=== PATIENT | female | born 1960 | race Two or more races ===

== ENCOUNTER 2024-03-14 17:48 | Emergency (ER) | payer MEDICAID, OTHER ==
[~2024-03-14] VITALS: Ht 167.6 cm; Wt 89.9 kg
[2024-03-14 18:43] VITALS: BP 120/73; PULSE 69; RESP 18; O2SAT 99
[2024-03-14] MEDS: CLINDAMYCIN HCL 150 MG CAP PO ONE (18:56)
[2024-03-14] MEDS: cefTRIAXone SOD 1,000 MG VL IM ONE (18:57)
--- NOTE | 2024-03-14 19:02 | ED.PDOC ---
History of Present Illness HPI Comments 63 y/o F, with a Hx of DM, HTN, and obesity, presents with c/o burn wound to right breast, today. 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 Patient comments on previous burn wound healing properly until today and burn area being localized around her right nipple area. Patient denies having any numbness, tingling, or active bleeding to right breast area in addition to having any other associated symptoms or modifiers at this time. 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 Family History Family History: Unknown Social History Smoker: Non-Smoker Alcohol: Denies ETOH Use Drugs: Denies Drug Use Lives In: Home Constitutional: denies: chills, diaphoresis, fatigue, fever, malaise, sweats, weakness, others EENTM: denies: blurred vision, double vision, ear bleeding, ear discharge, ear drainage, ear pain, ear ringing, eye pain, eye redness, hearing loss, mouth pain, mouth swelling, nasal discharge, nose bleeding, nose congestion, nose pain, photophobia, tearing, throat pain, throat swelling, voice changes, others Respiratory: denies: cough, hemoptysis, orthopnea, SOB at rest, shortness of breath, SOB with excertion, stridor, wheezing, others Cardiovascular: denies: chest pain, dizzy spells, diaphoresis, Dyspnea on exertion, edema, irregular heart beat, left arm pain, lightheadedness, palp itations, PND, syncope, others Gastrointestinal: denies: abdomen distended, abdominal pain, blood streaked bowels, constipated, diarrhea, dysphagia, difficulty swallowing, hematemesis, melena, nausea, poor appetite, poor fluid intake, rectal bleeding, rectal pain, vomiting, others Genitourinary: denies: abnormal vagina bleeding, burning, dyspareunia, dysuria, flank pain, frequency, hematuria, incontinence, pain, , vagina discharge, urgency, others Neurological: denies: dizziness, fainting, headache, left sided numbness, left sided weakness, numbness, paresthesia, pre-existing deficit, right sided numbness, right sided weakness, seizure, speech problems, tingling, tremors, weakness, others Musculoskeletal: denies: back pain, gout, joint pain, joint swelling, muscle pain, muscle stiffness, neck pain, others Integumetry: reports: wounds (right breast ); denies: bruises, change in color, change in hair/nails, dryness, laceration, lesions, lumps, rash, others Allergic/Immunocompromised: denies: Difficulty Healing, Frequent Infections, Hives, Itching, others Hematologic/Lymphatic: denies: anemia, blood clots, easy bleeding, easy bruising, swollen glands, others Endocrine: denies: excessive hunger, excessive sweating, excessive thirst, excessive urination, flushing, intolerance to cold, intolerance to heat, unexplained weight gain, unexplained weight loss, others Psychiatric: denies: anxiety, bipolar disorder, depression, hopeless, panic disorder, schizophrenia, sleepless, suicidal, others All Other Systems: Reviewed and Negative Physical Exam General Appearance: Moderate Distress HEENT: Normal ENT Inspection, Pharynx Normal, TMs Normal Neck: Full Range of Motion, Non-Tender, Normal, Normal Inspection Respiratory: Chest Non-Tender, Lungs Clear, No Accessory Muscle Use, No Respiratory Distress, Normal Breath Sounds Cardiovascular: No Edema, No JVD, No Murmur, No Gallop, Normal Peripheral Pulses, Regular Rate/Rhythm Breast Exam: Deferred Gastrointestinal: No Organomegaly, Non Tender, No Pulsatile Mass, Normal Bowel Sounds, Soft Genitalia: Deferred Pelvic: Deferred Rectal: Deferred Extremities: No calf tenderness, Normal capillary refill, Normal inspection, Normal range of motion, Non-tender, No pedal edema Musculoskeletal : Apperance: Normal Neurologic: 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 Was a procedure done?: No Differential Dx Considerations may include: burn wounds, cellulitis, dermatitis X-Ray, Labs, Meds, VS Vital Signs Date Time Temp Pulse Resp B/P (MAP) Pulse Ox O2 Delivery O2 Flow Rate FiO2 03/14/24 18:43 69 18 99 Room Air* 0 21 03/14/24 18:43 69 18 120/73 (89) 99 03/14/24 18:03 98.1 65 16 129/74 (92) 96 Current Medications Medications (Trade) Dose Ordered Sig/Queenie Route Start Time Stop Time Status Last Admin Ceftriaxone Sodium (Rocephin) 1,000 mg ONCE ONCE IM 03/14/24 19:00 03/14/24 19:01 DC 03/14/24 18:57 Clindamycin HCl (Cleocin Capsule) 300 mg ONCE ONCE PO 03/14/24 19:00 03/14/24 19:01 DC 03/14/24 18:56 Patient alert. Has a wound on her right breast. After placing a hot pot or right breast. Contained redness. Vitals stable. Answering all questions. Was given Rocephin. Was given prescription of amoxicillin clindamycin antibiotic. Explained to the patient. Physical examination pristine other than the wound. Denies chest pain. No leg swelling. Denies shortness a breath pain Reviewed her history. Was told to follow up with her primary care physician. Was told to come back if there is any problem. Time of 1ST Reevaluation: 19:10 Reevaluation 1ST: Unchanged Patient Education/Counseling: Diagnosis, Treatment Family Education/Counseling: No Family Present Departure 1 Departure Time of Disposition: 19:09 Impression: Primary Impression: Cellulitis Qualified Codes: L03.90 - Cellulitis, unspecified Disposition: 01 HOME / SELF CARE / HOMELESS Condition: Good e-Prescriptions Clindamycin Hcl (Clindamycin Hcl) 300 Mg Cap 1 CAP PO TID, #30 CAP Prov: ELIZABETH GRIGSBY MD 03/14/24 Amoxicillin Trihydrate (Amoxicillin) 500 Mg Cap 1 CAP PO TID for 10 Days, #30 CAP Prov: ELIZABETH GRIGSBY MD 03/14/24 Discharged With: Self Critical Care Note Critical Care Time?: No Stability Stability form required: No Heart Score Heart Score: Heart Score Response (Comments) Value History N/A 0 EKG N/A 0 Age N/A 0 Risk Factors N/A 0 Troponin N/A 0 Total 0 I personally scribed for ELIZABETH GRIGSBY MD ([email or web address]) on 03/14/24 at 19:02. Electronically submitted by Venancio Benavides ([email or web address]). ELIZABETH GRIGSBY MD Mar 14, 2024 19:02
[2024-03-14] MEDS ORDERED: AMOX500C2 PO (19:10)
[2024-03-14] MEDS ORDERED: CLIN1CAP70 PO (19:10)
== END 2024-03-14 19:35 | disposition home or self-care (01) ==
LOC: ER 17:48
DX: N61.0 Mastitis without abscess (principal); E11.9 Type 2 diabetes mellitus without complications; I10 Essential (primary) hypertension
CPT/HCPCS: 96372; 99283; J0696

== ENCOUNTER → 2024-09-15 | Day surgery (SDC) | payer MEDICAID ==
[2024-09-13 10:51] LABS: Basophils # (auto) 0 10 ^3/uL (0-0.2); Basophils % (auto) 0.6 % (0.0-2.0); Eosinophils # (auto) 0.2 10 ^3/uL (0-0.8); Hemoglobin 13.6 g/dL (12.2-16.2); Lymphocytes # (auto) 1.8 10 ^3/uL (0.4-5.4); Lymphocytes % (auto) 31.4 % (10.0-50.0); Mean Corpuscular Hemoglobin 27.5 pg (28.0-32.0); Mean Corpuscular Hgb Conc. 33.2 g/dL (32.0-36.0); Monocytes # (auto) 0.6 10 ^3/uL (0-1.3); Monocytes % (auto) 10.6 % (0.0-12.0); Neutrophils % (auto) 53.4 % (37.0-80.0); Nucleated Red Blood Cells % 0.2 %; Platelet Count (auto) 265 10^3/uL (140-450); Red Blood Cells 4.94 10^6/uL (4.0-5.20); Red Cell Distribution Width 14.3 % (11.8-14.3); White Blood Cell 5.7 10^3/uL (4.4-10.8)
[2024-09-13 11:01] LABS: Urine Bacteria FEW /hpf (None Seen); Urine Blood Negative /uL (Negative); Urine Clarity Clear (Clear); Urine Color Yellow (Yellow); Urine Protein, UAD Negative (Negative); Urine Specific Gravity 1.024 (1.001-1.035); Urine Squamous Epithelial Cell FEW /hpf (<5); Urine Urobilinogen Normal (Negative); Urine WBC 2 /HPF (0-5); Urine pH 5.5 (5.0-9.0)
[2024-09-13 11:16] LABS: Alanine Aminotransferase 24 U/L (7-40); Albumin 4.4 g/dL (3.2-4.8); Alkaline Phosphatase 87 U/L (46-116); Anion Gap 7 (5-15); Aspartate Aminotransferase 18 U/L (13-40); BUN/Creatinine Ratio 21.2 (10.0-20.0); Bilirubin, Total 0.5 mg/dL (0.2-1.0); Blood Urea Nitrogen 14 mg/dL (9-23); Calcium 10.1 mg/dL (8.7-10.4); Carbon Dioxide 27 mmol/L (20-31); Chloride 103 mmol/L (98-107); Potassium 4.1 mmol/L (3.5-5.1); Sodium 137 mmol/L (136-145)
[2024-09-13 11:17] LABS: Glucose 243 mg/dL (74-106)
[2024-09-13 11:31] LABS: INR 0.97 (0.9-1.15); Partial Thromboplastin Time 26.2 SEC (24.5-34.5); Prothrombin Time 10.3 sec (9.3-11.8)
[~2024-09-15] VITALS: Ht 170.2 cm; Wt 90.7 kg
[~2024-09-15] MED LIST: AMOX500C2 PO; BUPIVACAINE 0.5% P/F INJ 10 ML VIAL ONE; CLIN1CAP70 PO; CYCL-837 PO; HYDROmorphone HCL 2 MG/ML VL/or syr IV PRN; IBUP-1456 PO; KETOROLAC TROMETH 30 MG/ML 1ML VIAL IV ONE; LIDOCAINE W/ EPINEPHRINE 1% 20ML VIAL ONE; ONDANSETRON HCL 4 MG/2 ML VIAL IV ONE; ceFAZolin 2 GM/D5W50ml 50 ML IV ONE; hydrALAZINE HCL 20 MG/ML VL IV PRN
[2024-09-15 07:46] VITALS: BP 157/85; PULSE 95; RESP 18; TEMP 98; O2SAT 95
== END | disposition home or self-care (01) ==
LOC: SUR 07:19
PROVIDERS: ATTEND Surgery
DX: K40.90 Unilateral inguinal hernia, without obstruction or gangrene, not specified as recurrent (principal); E11.9 Type 2 diabetes mellitus without complications; Z79.84 Long term (current) use of oral hypoglycemic drugs; Z98.890 Other specified postprocedural states; Z79.899 Other long term (current) drug therapy
CPT/HCPCS: 36415; 80053; 81001; 82962; 85025; 85610; 85730; J0690; J3490

== ENCOUNTER 2024-09-22 16:42 | Emergency (ER) | payer MEDICAID ==
[~2024-09-22] VITALS: Ht 170.2 cm; Wt 92.6 kg
[~2024-09-22 16:42] MED LIST changes: -BUPIVACAINE 0.5% P/F INJ 10 ML VIAL ONE; -CYCL-837 PO; -HYDROmorphone HCL 2 MG/ML VL/or syr IV PRN; -IBUP-1456 PO; -KETOROLAC TROMETH 30 MG/ML 1ML VIAL IV ONE; -LIDOCAINE W/ EPINEPHRINE 1% 20ML VIAL ONE; -ONDANSETRON HCL 4 MG/2 ML VIAL IV ONE; -ceFAZolin 2 GM/D5W50ml 50 ML IV ONE; -hydrALAZINE HCL 20 MG/ML VL IV PRN
[2024-09-22 18:22] VITALS: BP 131/85; PULSE 106; RESP 16; TEMP 96.9; O2SAT 94
[2024-09-22] MEDS ORDERED: IBUP-1456 PO (18:47)
[2024-09-22] MEDS ORDERED: CYCL-837 PO (18:47)
--- NOTE | 2024-09-22 18:47 | ED.PDOC ---
Musculoskeletal HPI Comments 63-year-old female presents to ER with complaints of back pain x2 weeks. Patient reports she started experiencing left lower back pain with radiation towards the left buttock and down posterior left leg two weeks ago. Denies any trauma/injury. She rates her current pain a 10/10. Denies use of medications for current symptoms. Patient presents to ER ambulatory on arrival, with steady gait, in no distress. Denies fever, body aches, chills, night sweats, shortness of breath, chest pain, abdominal/pelvic pain, fatigue, changes in urination/BM or any further symptoms/complaints Chief Complaint: Lower Extremity Time Seen by MD: 18:07 Primary Care Provider: NILESH Reviewed Notes: Nurses Notes, Medications, Allergies Allergies: Coded Allergies: NO KNOWN ALLERGIES (Unverified , 09/13/24) Home Meds Active Scripts Cyclobenzaprine Hcl (Cyclobenzaprine Hcl) 5 Mg Tab, 1 TAB PO QHSP PRN, #14 TAB 0 Refills Prov:FERNANDO SANDOVAL 09/22/24 Ibuprofen (Ibuprofen) 800 Mg Tab, 1 TAB PO TID PRN, #30 TAB 0 Refills Prov:FERNANDO SANDOVAL 09/22/24 Clindamycin Hcl (Clindamycin Hcl) 300 Mg Cap, 1 CAP PO TID, #30 CAP Prov:ELIZABETH GRIGSBY MD 03/14/24 Amoxicillin Trihydrate (Amoxicillin) 500 Mg Cap, 1 CAP PO TID for 10 Days, #30 CAP Prov:ELIZABETH GRIGSBY MD 03/14/24 Information Source: Patient Mode of Arrival: Ambulatory Past Medical History PAST MEDICAL HISTORY: DM, High Lipids, HTN Surgical History: Surgical History (Other): Right knee surgery Left breast surgery 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 Family History Family History: Unknown Social History Smoker: Non-Smoker Alcohol: Denies ETOH Use Drugs: Denies Drug Use Lives In: Home Constitutional: denies: chills, diaphoresis, fatigue, fever, malaise, sweats, weakness, others EENTM: denies: blurred vision, double vision, ear bleeding, ear discharge, ear drainage, ear pain, ear ringing, eye pain, eye redness, hearing loss, mouth pain, mouth swelling, nasal discharge, nose bleeding, nose congestion, nose pain, photophobia, tearing, throat pain, throat swelling, voice changes, others Respiratory: denies: cough, hemoptysis, orthopnea, SOB at rest, shortness of breath, SOB with excertion, stridor, wheezing, others Cardiovascular: denies: chest pain, dizzy spells, diaphoresis, Dyspnea on exertion, edema, irregular heart beat, left arm pain, lightheadedness, palpitations, PND, syncope, others Gastrointestinal: denies: abdomen distended, abdominal pain, blood streaked bowels, constipated, diarrhea, dysphagia, difficulty swallowing, hematemesis, melena, nausea, poor appetite, poor fluid intake, rectal bleeding, rectal pain, vomiting, others Genitourinary: denies: abnormal vagina bleeding, burning, dyspareunia, dysuria, flank pain, frequency, hematuria, incontinence, pain, , vagina discharge, urgency, others Neurological: denies: dizziness, fainting, headache, left sided numbness, left sided weakness, numbness, paresthesia, pre-existing deficit, right sided numbness, right sided weakness, seizure, speech problems, tingling, tremors, weakness, others Musculoskeletal: reports: others (As stated in HPI) Integumetry: denies: bruises, change in color, change in hair/nails, dryness, laceration, lesions, lumps, rash, wounds, others Allergic/Immunocompromised: denies: Difficulty Healing, Frequent Infections, Hives, Itching, others Hematologic/Lymphatic: denies: anemia, blood clots, easy bleeding, easy bruising, swollen glands, others Endocrine: denies: excessive hunger, excessive sweating, excessive thirst, excessive urination, flushing, intolerance to cold, intolerance to heat, unexplained weight gain, unexplained weight loss, others Psychiatric: denies: anxiety, bipolar disorder, depression, hopeless, panic disorder, schizophrenia, sleepless, suicidal, others Physical Exam General Appearance: No Apparent Distress HEENT: PERRL/EOMI Neck: Full Range of Motion, Non-Tender, Normal Respiratory: Chest Non-Tender, Lungs Clear, No Accessory Muscle Use, No Respiratory Distress, Normal Breath Sounds Cardiovascular: No Murmur, No Gallop, Regular Rate/Rhythm Breast Exam: Deferred Gastrointestinal: Non Tender, No Pulsatile Mass, Soft Genitalia: Deferred Pelvic: Deferred Rectal: Deferred Extremities: No calf tenderness, Normal capillary refill, Normal range of motion Musculoskeletal : Extremity Location: Back (Slight TTP to left lower lumbar paraspinals and slight TTP centralized to left buttock noted. No bony tenderness appreciated. No skin changes noted. Steady gait noted) Neurologic: Alert, No Motor Deficits, Normal Affect, Normal Mood, No Sensory Deficits Cerebellar Function: Normal Reflexes: Normal Skin: Dry, Normal Color, Warm Peripheral Pulses: 2+ femoral (R), 2+ femoral (L), 2+ dorsalis pedis (R), 2+ dorsalis pedis (L) Lymphatic: No Adenopathy Was a procedure done? Was a procedure done?: No Sedation Sedation?: No Differential Diagnosis EXT Differential Diagnosis: Fracture, Dislocation, Neurovascular injury X-Ray, Labs, Meds, VS Vital Signs Date Time Temp Pulse Resp B/P (MAP) Pulse Ox O2 Delivery O2 Flow Rate FiO2 09/22/24 18:22 96.9 106 16 131/85 (100) 94 96.9 09/22/24 18:22 106 16 94 Room Air 09/22/24 17:31 96.9 106 16 131/85 (100) 94 96.9 Toradol 60 mg IM ordered Patient neurovascularly intact and reported improvement in symptoms prior to discharge Advised on rest/no strenuous activity Advised to follow up with PCP in 1-2 days Patient verbalized understanding and agreeable with current plan of care Advised to return to ER immediately if symptoms worsen Time of 1ST Reevaluation: 18:20 Reevaluation 1ST: N/A Patient Education/Counseling: Diagnosis, Treatment, Prognosis, Need For Follow Up Family Education/Counseling: No Family Present Departure 1 Departure Time of Disposition: 18:42 Impression: Primary Impression: Sciatica, left side Disposition: 01 HOME / SELF CARE / HOMELESS Condition: Stable e-Prescriptions Cyclobenzaprine Hcl (Cyclobenzaprine Hcl) 5 Mg Tab 1 TAB PO QHSP PRN, #14 TAB 0 Refills Prov: FERNANDO SANDOVAL 09/22/24 Ibuprofen (Ibuprofen) 800 Mg Tab 1 TAB PO TID PRN, #30 TAB 0 Refills Prov: FERNANDO SANDOVAL 09/22/24 Discharged With: Self Critical Care Note Critical Care Time?: No Stability Stability form required: No Heart Score Heart Score: Heart Score Response (Comments) Value History N/A 0 EKG N/A 0 Age N/A 0 Risk Factors N/A 0 Troponin N/A 0 Total 0 FERNANDO SANDOVAL September 22, 2024 18:47
[2024-09-22] MEDS: KETOROLAC TROMETH 60MG/2ML VIAL IM ONE (18:57)
== END 2024-09-22 19:01 | disposition home or self-care (01) ==
LOC: ER 16:42
DX: M54.32 Sciatica, left side (principal); E11.9 Type 2 diabetes mellitus without complications; I10 Essential (primary) hypertension; E78.5 Hyperlipidemia, unspecified; Z98.890 Other specified postprocedural states
CPT/HCPCS: 96372; 99283; J1885

== ENCOUNTER 2024-11-11 01:24 | Inpatient (IN) | payer MEDICAID ==
[~2024-11-11] VITALS: Ht 167.6 cm; Wt 72.0 kg
[~2024-11-11 01:24] MED LIST changes: +CYCL-837 PO; +IBUP-1456 PO
[2024-11-11 02:20] LABS: Hematocrit 39.1 % (36.0-46.0); Hemoglobin 13.1 g/dL (12.2-16.2); Mean Corpuscular Hemoglobin 27.5 pg (28.0-32.0); Mean Corpuscular Volume 82.2 fL (80.0-100.0); Nucleated Red Blood Cells % 0.1 %
[2024-11-11 02:29] LABS: Chloride 101 mmol/L (98-107); Potassium 4.0 mmol/L (3.5-5.1); Sodium 139 mmol/L (136-145)
[2024-11-11 02:30] LABS: Anion Gap 9 (5-15); Calcium 9.8 mg/dL (8.7-10.4); Carbon Dioxide 29 mmol/L (20-31)
[2024-11-11 02:35] LABS: BUN/Creatinine Ratio 20.6 (10.0-20.0); Blood Urea Nitrogen 14 mg/dL (9-23)
[2024-11-11 02:36] LABS: Urine Protein, UAD Negative (Negative)
--- NOTE | 2024-11-11 02:38 | DVH ---
CHEST RADIOGRAPH Indication: weakness Technique: Single frontal view of the chest was obtained Comparison: None IMPRESSION: Heart appears normal in size. The lungs appear clear without focal airspace opacity, effusion, or pn eumothorax
[2024-11-11 02:40] LABS: Glucose 152 mg/dL (74-106)
--- NOTE | 2024-11-11 02:44 | DVH ---
EXAM: CT HEAD WITHOUT CONTRAST INDICATION: weakness TECHNIQUE: CT of the head without intravenous contrast. Radiation Dose Information: CT Dose: CTDI volume is 57.5 mGy. Dose-length product is 1132.7 mGy*cm The dose indicators for CT are the volume Computed Tomography (CT) Dose Index (CTDIvol) and the Dose Length Product (DLP), and are measured in units of mGy and mGy-cm, respectively. These indicators are not patient dose, but values generated from the CT scanner acquisition factors. The report includes radiation exposure data for exposures received during this examination. COMPARISON: None FINDINGS: There is no evidence of acute intracranial hemorrhage, extra-axial collection, mass effect, midline s hift, herniation or hydrocephalus. The ventricles, sulci and cisterns are age appropriate. The bo-white differentiation is intact. Mild mucosal sinus thickening left maxillary sinus. The surrounding soft tissues and osseous structures are unremarkable. IMPRESSION: 1. No acute intracranial abnormality.
--- NOTE | 2024-11-11 02:46 | ED.PDOC ---
History of Present Illness HPI Comments 63 year old female presents to the ED via EMS with a chief complaint of dizziness onset 1 day. Patient states she has been experiencing hypertension as well as dizziness, headache, ear ringing for the past day, has not taken any medication. Denies chest pain, nausea, vomiting, diarrhea, fever, chills. No oth er symptoms or modifying factors present at this time. Chief Complaint: Dizziness Time Seen by MD: 02:40 Primary Care Provider: NILESH David Notes: Medications, Allergies Allergies: Coded Allergies: NO KNOWN ALLERGIES (Unverified , 09/13/24) Home Meds Active Scripts Glipizide (Glipizide) 5 Mg Tab, 1 TAB PO BID, #60 TAB 3 Refills Prov:MARIANNE JACINTO MD 11/13/24 Hctz (Hydrochlorothiazide) 25 Mg Tab, 25 MG PO DAILY, #60 TAB Prov:MARIANNE JACINTO MD 11/13/24 Cyclobenzaprine Hcl (Cyclobenzaprine Hcl) 5 Mg Tab, 1 TAB PO QHSP PRN, #14 TAB 0 Refills Prov:FERNANDO SANDOVAL 09/22/24 Reported Medications Metformin Hydrochloride (Metformin Hcl) 500 Mg Tab, 1000 MG PO DAILY for 30 Days, MG 11/11/24 Atorvastatin Calcium (ATORVASTATIN CALCIUM) 20 Mg Tab, 1 TAB PO DAILY 11/11/24 Discontinued Reported Medications Hydrochlorothiazide (Hydrochlorothiazide) 12.5 Mg Cap, 1 CAP PO DAILY 11/11/24 Discontinued Scripts Ibuprofen (Ibuprofen) 800 Mg Tab, 1 TAB PO TID PRN, #30 TAB 0 Refills Prov:FERNANDO SANDOVAL 09/22/24 Clindamycin Hcl (Clindamycin Hcl) 300 Mg Cap, 1 CAP PO TID, #30 CAP Prov:ELIZABETH GRIGSBY MD 03/14/24 Amoxicillin Trihydrate (Amoxicillin) 500 Mg Cap, 1 CAP PO TID for 10 Days, #30 CAP Prov:ELIZABETH GRIGSBY MD 03/14/24 Information Source: Patient, Emergency Med Personnel Mode of Arrival: EMS Severity: Moderate Timing: Hours Duration: Since onset Prehospital treatment: None Past Medical History PAST MEDICAL HISTORY: DM, High Lipids, HTN 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 Family History Family History: Unknown Social History Smoker: Non-Smoker Alcohol: Denies ETOH Use Drugs: Denies Drug Use Lives In: Home Constitutional: denies: chills, diaphoresis, fatigue, fever, malaise, sweats, weakness, others EENTM: reports: ear ringing; denies: blurred vision, double vision, ear bleeding, ear discharge, ear drainage, ear pain, eye pain, eye redness, hearing loss, mouth pain, mouth swelling, nasal discharge, nose bleeding, nose congestion, nose pain, photophobia, tearing, throat pain, throat swelling, voice changes, others Respiratory: denies: cough, hemoptysis, orthopnea, SOB at rest, shortness of breath, SOB with excertion, stridor, wheezing, others Cardiovascular: reports: others (hypertension); denies: chest pain, dizzy spells, diaphoresis, Dyspnea on exertion, edema, irregular heart beat, left arm pain, lightheadedness, palpitations, PND, syncope Gastrointestinal: denies: abdomen distended, abdominal pain, blood streaked bowels, constipated, diarrhea, dysphagia, difficulty swallowing, hematemesis, melena, nausea, poor appetite, poor fluid intake, rectal bleeding, rectal pain, vomiting, others Genitourinary: denies: abnormal vagina bleeding, burning, dyspareunia, dysuria, flank pain, frequency, hematuria, incontinence, pain, , vagina discharge, urgency, others Neurological: reports: dizziness, headache; denies: fainting, left sided numbness, left sided weakness, numbness, paresthesia, pre-existing deficit, right sided numbness, right sided weakness, seizure, speech problems, tingling, tremors, weakness, others Musculoskeletal: denies: back pain, gout, joint pain, joint swelling, muscle pain, muscle stiffness, neck pain, others Integumetry: denies: bruises, change in color, change in hair/nails, dryness, laceration, lesions, lumps, rash, wounds, others Allergic/Immunocompromised: denies: Difficulty Healing, Frequent Infections, Hives, Itching, others Hematologic/Lymphatic: denies: anemia, blood clots, easy bleeding, easy bruising, swollen glands, others Endocrine: denies: excessive hunger, excessive sweating, excessive thirst, excessive urination, flushing, intolerance to cold, intolerance to heat, unexplained weight gain, unexplained weight loss, others Psychiatric: denies: anxiety, bipolar disorder, depression, hopeless, panic disorder, schizophrenia, sleepless, suicidal, others All Other Systems: Reviewed and Negative Physical Exam General Appearance: No Apparent Distress, Normal HEENT: Normal ENT Inspection, Pharynx Normal, TMs Normal Neck: Full Range of Motion, Non-Tender, Normal, Normal Inspection Respiratory: Chest Non-Tender, Lungs Clear, No Accessory Muscle Use, No Respiratory Distress, Normal Breath Sounds Cardiovascular: No Edema, No JVD, No Murmur, No Gallop, Normal Peripheral Pulses, Regular Rate/Rhythm Breast Exam: Deferred Gastrointestinal: No Organomegaly, Non Tender, No Pulsatile Mass, Normal Bowel Sounds, Soft Genitalia: Deferred Pelvic: Deferred Rectal: Deferred Extremities: No calf tenderness, Normal capillary refill, Normal inspection, Normal range of motion, Non-tender, No pedal edema Musculoskeletal : Apperance: Normal 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 Was a procedure done?: No Differential Dx Considerations may include: Hypertensive emergency, migraine, viral syndrome ,electrolyte abnormality X-Ray, Labs, Meds, VS Vital Signs Date Time Temp Pulse Resp B/P (MAP) Pulse Ox O2 Delivery O2 Flow Rate FiO2 11/11/24 08:00 70 11/11/24 07:35 98.6 71 20 132/78 (96) 96 98.6 11/11/24 07:35 71 20 96 Room Air* 0 21 11/11/24 06:00 97.5 66 18 144/77 (99) 96 97.5 11/11/24 04:20 75 19 96 Room Air* 0 21 11/11/24 04:20 75 19 96 Room Air* 0 21 11/11/24 04:20 97.7 75 19 154/89 (110) 96 97.7 11/11/24 01:40 98.7 79 22 160/91 (114) 97 98.7 Lab Test 11/11/24 02:53 11/11/24 02:00 11/11/24 01:25 Range/Units Troponin I High Sensitivity 7 6 </=34 ng/L White Blood Count 7.0 4.4-10.8 10^3/uL Red Blood Count 4.76 4.0-5.20 10^6/uL Hemoglobin 13.1 12.2-16.2 g/dL Hematocrit 39.1 36.0-46.0 % Mean Corpuscular Volume 82.2 80.0-100.0 fL Mean Corpuscular Hemoglobin 27.5 L 28.0-32.0 pg Mean Corpuscular Hemoglobin Concent 33.5 32.0-36.0 g/dL Red Cell Distribution Width 14.2 11.8-14.3 % Platelet Count 267 140-450 10^3/uL Mean Platelet Volume 7.4 6.9-10.8 fL Neutrophils (%) (Auto) 58.3 37.0-80.0 % Lymphocytes (%) (Auto) 29.4 10.0-50.0 % Monocytes (%) (Auto) 8.4 0.0-12.0 % Eosinophils (%) (Auto) 3.3 0.0-7.0 % Basophils (%) (Auto) 0.6 0.0-2.0 % Neutrophils # (Auto) 4.1 1.6-8.6 10 ^3/uL Lymphocytes # (Auto) 2.0 0.4-5.4 10 ^3/uL Monocytes # (Auto) 0.6 0-1.3 10 ^3/uL Eosinophils # (Auto) 0.2 0-0.8 10 ^3/uL Basophils # (Auto) 0 0-0.2 10 ^3/uL Nucleated Red Blood Cells 0.1 % Sodium Level 139 136-145 mmol/L Potassium Level 4.0 3.5-5.1 mmol/L Chloride Level 101 98-107 mmol/L Carbon Dioxide Level 29 20-31 mmol/L Anion Gap 9 5-15 Blood Urea Nitrogen 14 9-23 mg/dL Creatinine 0.68 0.550-1.02 mg/dL Glomerular Filtration Rate Calc 99 >90 mL/min BUN/Creatinine Ratio 20.6 H 10.0-20.0 Serum Glucose 152 H 74-106 mg/dL Hemoglobin A1c 8.4 H <5.7 % A1C Calcium Level 9.8 8.7-10.4 mg/dL Magnesium Level 1.9 1.6-2.6 mg/dL Triglycerides Level 179 H < 150 mg/dL Cholesterol Level 206 H < 200 mg/dL LDL Cholesterol 137 H < 100 mg/dL HDL Cholesterol 50 40-59 mg/dL Thyroid Stimulating Hormone (TSH) 3.95 0.55-4.78 uIU/mL Hepatitis B Surface Antigen Negative Negative Hepatitis C Antibody Negative Negative Urine Color Colorless Yellow Urine Clarity Clear Clear Urine pH 7.5 5.0-9.0 Urine Specific [place] 1.009 1.001-1.035 Urine Protein Negative Negative Urine Ketones Negative Negative Urine Blood Negative Negative /uL Urine Nitrite Negative Negative Urine Bilirubin Negative Negative Urine Urobilinogen Normal Negative mg/dL Urine Leukocyte Esterase Negative Negative /uL Urine RBC <1 0 - 4 /hpf Urine Microscopic WBC < 1 0-5 /HPF Urine Squamous Epithelial Cells Few <5 /hpf Urine Bacteria None seen None Seen /hpf Urine Glucose Normal Normal mg/dL Urine Opiates Screen Neg NEGATIVE Urine Fentanyl Screen Neg NEGATIVE Urine Barbiturates Screen Neg NEGATIVE Urine Phencyclidine Screen Neg NEGATIVE Urine Amphetamines Screen Neg NEGATIVE Urine Benzodiazepines Screen Neg NEGATIVE Urine Cocaine Screen Neg NEGATIVE Urine Cannabinoids Screen Neg NEGATIVE Time of 1ST Reevaluation: 03:10 Reevaluation 1ST: Unchanged Patient Education/Counseling: Diagnosis, Treatment, Prognosis Family Education/Counseling: No Family Present SEPSIS Sepsis Screen Date sepsis recognized/suspect: Nov 11, 2024 Time Sepsis recognized/suspect: 139 Recent Procedure: No On Antibiotic Therapy: No Respiratory Rate >20: Yes Heart Rate >90: No Temp<36 C (96.8 F) or >38.3 C: No SBP <90 or MAP <65 mmHG: No New Acute Mental Status Change: No Is the patient on CPAP, BIPAP,: No Physician Orders Chest Portable (11/11/24 01:47) Head Without Contrast (11/11/24 01:47) Echo 2d Mode Cardiac Dop (11/11/24 07:38) Carotid Duplx W Color Dop (11/11/24 07:38) Code Status (11/11/24 11:17) Oxygen By Nasal Cannula (11/11/24 11:17) Vital Signs Date Time Temp Pulse Resp B/P (MAP) Pulse Ox O2 Delivery O2 Flow Rate FiO2 11/11/24 08:00 70 11/11/24 07:35 98.6 71 20 132/78 (96) 96 98.6 11/11/24 07:35 71 20 96 Room Air* 0 21 11/11/24 06:00 97.5 66 18 144/77 (99) 96 97.5 11/11/24 04:20 75 19 96 Room Air* 0 21 11/11/24 04:20 75 19 96 Room Air* 0 21 11/11/24 04:20 97.7 75 19 154/89 (110) 96 97.7 11/11/24 01:40 98.7 79 22 160/91 (114) 97 98.7 Laboratory Tests Test 11/11/24 02:00 White Blood Count 7.0 10^3/uL (4.4-10.8) Departure 1 Departure Time of Disposition: 19:27 (Patient presented with hypertension and symptoms concerning for hypertensive emergency. Patient is receiving iv blood pressure medications requiring intensive monitoring. Data: 1. I ordered and reviewed the result of at least 3 labs including a CBC, BMP, and Urinalysis. 2. I independently interpreted the following tests: CT Brain: Which appears benign. EKG which is Normal Sinus RhythmRisk:This patient has a high risk of morbidity due to further diagnostic testing or treatment and may suffer from an acute cardiac disorder. Workup reveals hypertensive emergency and patient should be admitted for further workup. and possible expert consultation. ) Impression: Primary Impression: Hypertensive urgency Additional Impression: Migraine Qualified Codes: G43.109 - Migraine with aura, not intractable, without status migrainosus Disposition: ADMITTED INPATIENT Admit to: Med Surg Condition: Serious e-Prescriptions Glipizide (Glipizide) 5 Mg Tab 1 TAB PO BID, #60 TAB 3 Refills Prov: MARIANNE JACINTO MD 11/13/24 Hctz (Hydrochlorothiazide) 25 Mg Tab 25 MG PO DAILY, #60 TAB Prov: MARIANNE JACINTO MD 11/13/24 Critical Care Note Critical Care Time?: Yes Critical care comment: Hypertensive urgency Authorized and Performed by: Reinaldo Mcgovern MD Total critical care time: Approximately 37 minutes Due to a high probability of clinically significant, life threatening deterioration, the patient required my highest level of preparedness to intervene emergently and I personally spent this critical care time directly and personally managing the patient. This critical care time included obtaining a history; examining the patient; pulse oximetry; ordering and review of studies; arranging urgent treatment with development of a management plan; evaluation of patient's response to treatment; frequent reassessment; and, discussions with other providers. This critical care time was performed to assess and manage the high probability of imminent, life-threatening deterioration that could result in multi-organ failure. It was exclusive of separately billable procedures and treating other patients and teaching time. Please see my other sections and the rest of the note for further information on patient assessment and treatment. Stability Stability form required: No I personally scribed for REINALDO MCGOVERN MD ([email or web address]) on 11/11/24 at 02:46. Electronically submitted by Mary Badillo ([email or web address]). REINALDO MCGOVERN MD Nov 11, 2024 02:46
[2024-11-11 04:20] VITALS: PULSE 75; RESP 19; O2SAT 96
[2024-11-11 07:35] VITALS: PULSE 71; RESP 20; O2SAT 96
[2024-11-11] MEDS ORDERED: DEXTROSE (50%) 50ML SYRG IV PRN ×2 (07:45→11:30)
[2024-11-11 08:35] LABS: Amphetamine Screen, Urine Neg (NEGATIVE); Barbiturate Scree,Urine Neg (NEGATIVE); Benzodiazephine Screen, Urine Neg (NEGATIVE); Cannabinoid Screen, Urine Neg (NEGATIVE); Cocaine Screen, Urine Neg (NEGATIVE); Opiate Scree,Urine Neg (NEGATIVE); Phencyclidine Screen, Urine Neg (NEGATIVE)
--- NOTE | 2024-11-11 08:56 | DVH ---
Carotid Duplex Date: 11/11/2024 08:33 AM Clinical History: r/o occlusion Comparison: None Technique: Duplex Doppler evaluation of the extracranial carotid and vertebral arteries including col or Doppler and spectral/pulsed waveform analysis was performed. Findings: Ratios and velocites within normal limits IMPRESSION: No hemodynamically significant stenosis noted in the right carotid system. No hemodynamically significant stenosis noted in the left carotid system. Reference: Radiology 2003; 229:[id number]
[2024-11-11] MEDS ORDERED: MORPHINE SULFATE INJ 2 MG/ml SYRG IV PRN ×2 (11:15→11:30)
[2024-11-11] MEDS ORDERED: NITROGLYCERIN 0.4 MG SL TAB SL PRN ×2 (11:15→11:30)
[2024-11-11] MEDS ORDERED: ONDANSETRON HCL 4 MG/2 ML VIAL IV PRN ×2 (11:15→11:30)
[2024-11-11] MEDS ORDERED: SODIUM CHLORIDE 0.9% 1,000 ML IV SCH (11:15)
[2024-11-11] MEDS ORDERED: ACETAMINOPHEN 325 MG TAB PO PRN (11:15)
[2024-11-11] MEDS ORDERED: HYDROcodone-ACET 5/325MG TAB PO PRN ×2 (11:15→11:30)
[2024-11-11] MEDS ORDERED: HYDR12.59 PO (11:22)
[2024-11-11] MEDS ORDERED: ATOR20TA50 PO (11:22)
[2024-11-11] MEDS ORDERED: InsuLIN REG 1unit/0.01ml Soln (100units/ml) SC SCH (11:30)
[2024-11-11] MEDS ORDERED: ACCU-CHEK COMFORT CURVE STRIP VI SCH (11:30)
[2024-11-11] MEDS: ACCU-CHEK COMFORT CURVE STRIP VI SCH (11:35)
[2024-11-11] MEDS: InsuLIN REG 1unit/0.01ml Soln (100units/ml) SC SCH (11:36)
--- NOTE | 2024-11-11 11:39 | DVHHP2 ---
History of Present Illness Reason for Visit: Palpitations History of Present Illness Lucrecia Bashir is a 63-year-old female with past medical history of hypertension, hyperlipidemia, diabetes, , and right knee surgery who presents to the ED with palpitations, left leg pain, dizziness, headache, and ringing in the ears bilaterally x2 days. Patient reports that she has had her headache for 2 months ongoing. She also reports that she has not taken her blood pressure medications because she ran out. She also reports that she saw her primary care physician 1 month ago and told them about the ringing in the ears and they informed her that it was because of her high blood pressure. She also states that she has an appointment coming up next week for a follow up with her primary care doctor. Patient also endorses that when she walks her knees are in pain. Patient denies any chest pain, shortness of breath, fever, chills, lightheadedness, weakness, recent trauma or injury, recent sick contacts, recent ingestion of spoiled food, recent travels, abdominal pain, nausea, vomiting, or diarrhea. Cardiovascular: HTN, hyperipidemia Endocrine: Diabetes Past Surgical History: , Other (Right knee surgery) Family History: DM, Hyperlipidemia, Hypertension, Other (Mom with diabetes, hyperlipidemia, and hypertension. Dad .) Smoke: No ALCOHOL: none Lives: with Family Domestic Violence: Neg Review of Systems ENT: Other (Ringing in ears) Cardiovascular: Palpitations Neurological: Other (Dizziness and headache) Allergies: Coded Allergies: NO KNOWN ALLERGIES (Unverified , 09/13/24) Medications Current Medications Medications Dose Ordered Sig/Queenie Route Start Time Stop Time Status Last Admin Dose Admin Diagnostic Test (Pha) 1 strip ACHS 11/11/24 11:30 Insulin Human Regular ACHS SC 11/11/24 11:30 Dextrose 50 ml UD PRN IV 11/11/24 07:45 Sodium Chloride 1,000 ml @ 120 mls/hr Q8H20M IV 11/11/24 11:15 UNV Acetaminophen/ Hydrocodone Bitart 1 tab Q4HP PRN PO 11/11/24 11:15 UNV Ondansetron HCl 4 mg Q4HP PRN IV 11/11/24 11:15 UNV Acetaminophen 650 mg Q6HP PRN PO 11/11/24 11:15 UNV Nitroglycerin 0.4 mg Q5MINP PRN SL 11/11/24 11:15 UNV Morphine Sulfate 2 mg Q30M PRN IV 11/11/24 11:15 UNV Acetaminophen/ Hydrocodone Bitart 1 tab Q4HP PRN PO 11/11/24 11:30 UNV Ondansetron HCl 4 mg Q4HP PRN IV 11/11/24 11:30 UNV Acetaminophen 650 mg Q6HP PRN PO 11/11/24 11:30 UNV Nitroglycerin 0.4 mg Q5MINP PRN SL 11/11/24 11:30 UNV Morphine Sulfate 2 mg Q30M PRN IV 11/11/24 11:30 UNV Diagnostic Test (Pha) 1 strip ACHS 11/11/24 11:30 UNV Insulin Human Regular ACHS SC 11/11/24 11:30 UNV Dextrose 50 ml UD PRN IV 11/11/24 11:30 UNV Exam Vital Signs Vital Signs Date Time Temp Pulse Resp B/P (MAP) Pulse Ox O2 Delivery O2 Flow Rate FiO2 11/11/24 08:00 70 11/11/24 07:35 98.6 20 132/78 (96) 96 98.6 11/11/24 07:35 Room Air* 0 21 General Appearance: Alert, Oriented X3, Cooperative, No acute distress HEENT: Atraumatic, PERRLA, EOMI, Mucous membr. moist/pink Respiratory: Clear to auscultation, Normal air movement Cardiovascular: Regular rate, Normal S1, Normal S2 Abdominal: Normal bowel sounds, Soft Extremities: No clubbing, No cyanosis, No edema, Normal pulses, No tenderness/swelling Skin: No significant lesion Neuro: Normal speech, Strength at 5/5 X4 ext, Normal tone, Sensation intact Psych/Mental Status: Mental status NL, Mood NL Labs/Xrays Labs Test 11/11/24 02:53 11/11/24 02:00 11/11/24 01:25 Range/Units Troponin I High Sensitivity 7 </=34 ng/L White Blood Count 7.0 4.4-10.8 10^3/uL Red Blood Count 4.76 4.0-5.20 10^6/uL Hemoglobin 13.1 12.2-16.2 g/dL Hematocrit 39.1 36.0-46.0 % Mean Corpuscular Volume 82.2 80.0-100.0 fL Mean Corpuscular Hemoglobin 27.5 L 28.0-32.0 pg Mean Corpuscular Hemoglobin Concent 33.5 32.0-36.0 g/dL Red Cell Distribution Width 14.2 11.8-14.3 % Platelet Count 267 140-450 10^3/uL Mean Platelet Volume 7.4 6.9-10.8 fL Neutrophils (%) (Auto) 58.3 37.0-80.0 % Lymphocytes (%) (Auto) 29.4 10.0-50.0 % Monocytes (%) (Auto) 8.4 0.0-12.0 % Eosinophils (%) (Auto) 3.3 0.0-7.0 % Basophils (%) (Auto) 0.6 0.0-2.0 % Neutrophils # (Auto) 4.1 1.6-8.6 10 ^3/uL Lymphocytes # (Auto) 2.0 0.4-5.4 10 ^3/uL Monocytes # (Auto) 0.6 0-1.3 10 ^3/uL Eosinophils # (Auto) 0.2 0-0.8 10 ^3/uL Basophils # (Auto) 0 0-0.2 10 ^3/uL Nucleated Red Blood Cells 0.1 % Sodium Level 139 136-145 mmol/L Potassium Level 4.0 3.5-5.1 mmol/L Chloride Level 101 98-107 mmol/L Carbon Dioxide Level 29 20-31 mmol/L Anion Gap 9 5-15 Blood Urea Nitrogen 14 9-23 mg/dL Creatinine 0.68 0.550-1.02 mg/dL Glomerular Filtration Rate Calc 99 >90 mL/min BUN/Creatinine Ratio 20.6 H 10.0-20.0 Serum Glucose 152 H 74-106 mg/dL Hemoglobin A1c 8.4 H <5.7 % A1C Calcium Level 9.8 8.7-10.4 mg/dL Urine Color Colorless Yellow Urine Clarity Clear Clear Urine pH 7.5 5.0-9.0 Urine Specific [place] 1.009 1.001-1.035 Urine Protein Negative Negative Urine Ketones Negative Negative Urine Blood Negative Negative /uL Urine Nitrite Negative Negative Urine Bilirubin Negative Negative Urine Urobilinogen Normal Negative mg/dL Urine Leukocyte Esterase Negative Negative /uL Urine RBC <1 0 - 4 /hpf Urine Microscopic WBC < 1 0-5 /HPF Urine Squamous Epithelial Cells Few <5 /hpf Urine Bacteria None seen None Seen /hpf Urine Glucose Normal Normal mg/dL Urine Opiates Screen Neg NEGATIVE Urine Fentanyl Screen Neg NEGATIVE Urine Barbiturates Screen Neg NEGATIVE Urine Phencyclidine Screen Neg NEGATIVE Urine Amphetamines Screen Neg NEGATIVE Urine Benzodiazepines Screen Neg NEGATIVE Urine Cocaine Screen Neg NEGATIVE Urine Cannabinoids Screen Neg NEGATIVE Carotid Duplex Date: 11/11/2024 08:33 AM Clinical History: r/o occlusion Comparison: None Technique: Duplex Doppler evaluation of the extracranial carotid and vertebral arteries including color Doppler and spectral/pulsed waveform analysis was performed. Findings: Ratios and velocites within normal limits IMPRESSION: No hemodynamically significant stenosis noted in the right carotid system. No hemodynamically significant stenosis noted in the left carotid system. EXAM: CT HEAD WITHOUT CONTRAST INDICATION: weakness TECHNIQUE: CT of the head without intravenous contrast. Radiation Dose Information: CT Dose: CTDI volume is 57.5 mGy. Dose-length product is 1132.7 mGy*cm The dose indicators for CT are the volume Computed Tomography (CT) Dose Index (CTDIvol) and the Dose Length Product (DLP), and are measured in units of mGy and mGy-cm, respectively. These indicators are not patient dose, but values generated from the CT scanner acquisition factors. The report includes radiation exposure data for exposures received during this examination. COMPARISON: None FINDINGS: There is no evidence of acute intracranial hemorrhage, extra-axial collection, mass effect, midline shift, herniation or hydrocephalus. The ventricles, sulci and cisterns are age appropriate. The bo-white differentiation is intact. Mild mucosal sinus thickening left maxillary sinus. The surrounding soft tissues and osseous structures are unremarkable. IMPRESSION: 1. No acute intracranial abnormality. CHEST RADIOGRAPH Indication: weakness Technique: Single frontal view of the chest was obtained Comparison: None IMPRESSION: Heart appears normal in size. The lungs appear clear without focal airspace opacity, effusion, or pneumothorax Assessment/Plan Assessment/Plan Assessment Palpitations Hypertension Autonomic imbalance Intractable headache Tinnitus likely due to hypertension Medication noncompliance Left lower extremity leg pain rule out DVT History of hyperlipidemia History of diabetes History of History of right knee surgery Plan Admit to telemetry Troponin noted CT head noted Chest x-ray noted Hemoglobin A1c ISS and Accu-Cheks UA UDS Echo ordered Carotid ultrasound Lower extremity venous ultrasound Diet Home medications reconciled DVT prophylaxis-Lovenox PUD prophylaxis-PPIs Discussed plan of care with patient and nurse Cardiology consult [id number] Preventive counseling healthy eating habits, physical activity, and regular checkups Plan discussed with: Patient My Orders Orders - ELSA FLORES LICENSED DIRECT ENTRY MIDWIFE Procedure Category Date Status Time Glucose Blood PHA 11/11/24 In Process (Accu-Chek Comfort 11:30 Insulin R (Human) PHA 11/11/24 In Process (Insulin R) 11:30 Dextrose 50% Syringe PHA 11/11/24 In Process 07:45 Urinalysis LAB 11/11/24 Logged 07:38 Echo 2d Mode Cardiac US 11/11/24 Logged DOP 07:38 Carotid Duplx W Color US 11/11/24 Resulted DOP 07:38 Chest Xray 1 View XY 11/11/24 Logged 11:14 Lumbar Spine 3 View XY 11/11/24 Logged 11:14 Sodium Chloride 0.9% PHA 11/11/24 Logged 11:15 Hydrocodone-Acet PHA 11/11/24 Logged 5/325mg Tab ([place] 11:15 Ondansetron Hcl PHA 11/11/24 Logged (Zofran) 11:15 Acetaminophen Tablet PHA 11/11/24 Logged (Tylenol Tablet) 11:15 Nitroglycerin PHA 11/11/24 Logged Sublingual (Ntrostat 11:15 Morphine Sulfate PHA 11/11/24 Logged Injection 11:15 Allergies PATRICIA 11/11/24 In Process 11:17 Code Status CODE 11/11/24 Transmitted 11:17 Hydrocodone-Acet PHA 11/11/24 Logged 5/325mg Tab ([place] 11:30 Ondansetron Hcl PHA 11/11/24 Logged (Zofran) 11:30 Complete Blood Count LAB 11/12/24 Verified 04:00 Comprehensive LAB 11/12/24 Verified Metabolic Panel 04:00 Cardiac DIET 11/11/24 Transmitted Diet-2gna,Lofat,Lochol Lunch Acetaminophen Tablet PHA 11/11/24 Logged (Tylenol Tablet) 11:30 Sequential PATRICIA 11/11/24 In Process Compression Device Nitroglycerin PHA 11/11/24 Logged Sublingual (Ntrostat 11:30 Morphine Sulfate PHA 11/11/24 Logged Injection 11:30 Stat Ekg For Chest PATRICIA 11/11/24 In Process Pain 11:17 Notify Md Of Changes PATRICIA 11/11/24 In Process From Base 11:17 Art Manager For [facility] 11/11/24 In Process 24 Hours 11:17 Emergency Dysrhythmia [facility] 11/11/24 In Process Protocol 11:17 Rhythm Strips Once [facility] 11/11/24 In Process Every Shift 11:17 Oxygen By Nasal RT 11/11/24 Transmitted Cannula 11:17 Glucose Blood PHA 11/11/24 Logged (Accu-Chek Comfort 11:30 Insulin R (Human) PHA 11/11/24 Logged (Insulin R) 11:30 Dextrose 50% Syringe PHA 11/11/24 Logged 11:30 Admit ADMIT 11/11/24 Transmitted 11:19 Bilat Lower Dvt US 11/11/24 Logged 11:19 Date of Service: Nov 11, 2024 Billing Provider: ELSA FLORES Common Visit Codes: [id number] INP/OBS CARE (HIGH) Secondary Visit Codes: [id number] COUNSELING IND ELSA FLORES Nov 11, 2024 11:39
[2024-11-11 12:00] VITALS: BP 135/70; PULSE 70; RESP 16; RESP 19; TEMP 98.1; O2SAT 97
[2024-11-11] MEDS: PANTOPRAZOLE 40 MG/10 ML VIAL INJ IV SCH (12:02)
--- NOTE | 2024-11-11 12:06 | DVH ---
US BiLat Lower DVT HISTORY: r/o dvt COMPARISON: None TECHNIQUE: Duplex doppler evaluation of the deep venous system of the lower extremity from the common femoral veins, superficial femoral vein, great saphenous vein, deep femoral vein, popliteal vein, an d calf veins, including color doppler and spectral/pulsed waveform analysis, was performed. FINDINGS: Right: - Common femoral vein: Compressible - Deep femoral vein: Compressible - Femoral vein: Compressible - Popliteal vein: Compressible - Posterior tibial vein: Waveforms present - Other: 3.0 cm popliteal fossa cyst. Left: - Common femoral vein: Compressible - Deep femoral vein: Compressible - Femoral vein: Compressible - Popliteal vein: Compressible - Posterior tibial vein: Waveforms present - Other: Nothing IMPRESSION: No right or left lower extremity deep venous thrombosis.
[2024-11-11] MEDS ORDERED: METF-370 PO (13:22)
--- NOTE | 2024-11-11 13:41 | DVHINCON2 ---
Date Seen: Nov 11, 2024 Referring Physician SAMARA Hdez Reason for Consultation Palpitations History of Present Illness This is a 63-year-old Swedish-speaking female who presents to emergency room with chief complaint of headache and dizziness. The patient reports that symptoms began on the day prior to emergency room arrival. Upon emergency room arrival the patient was noted to have blood pressure readings as high as 160/91. The patient admits that she has not taken her antihypertensive medication in approximately one month. Cardiology has been consulted at this time for palpitations. The patient denies any palpitations at the time of assessment or prior to emergency room arrival. She does state that she was experiencing palpitations over one month ago but has not experienced any more palpitations within the last month. Initial twelve lead electrocardiogram reveals normal sinus rhythm without any significant ST segment changes. Troponin levels have been negative. The patient denies any cardiac symptoms at time of assessment. Significant past medical history includes hypertension, dyslipidemia, type 2 diabetes mellitus, and obesity. The patient reports that she is scheduled to have an initial consultation with a unix analyst in the outpatient setting next month. Past Medical History Past medical history reviewed. No other significant than mentioned above. Past Surgical History x3 Right knee replacement Family History Family history reviewed. Social History Denies the use of tobacco, alcohol or illicit drugs. Allergies: Coded Allergies: NO KNOWN ALLERGIES (Unverified , 09/13/24) Home Meds Active Scripts Cyclobenzaprine Hcl (Cyclobenzaprine Hcl) 5 Mg Tab, 1 TAB PO QHSP PRN, #14 TAB 0 Refills Prov:FERNANDO SANDOVAL 09/22/24 Ibuprofen (Ibuprofen) 800 Mg Tab, 1 TAB PO TID PRN, #30 TAB 0 Refills Prov:FERNANDO SANDOVAL 09/22/24 Clindamycin Hcl (Clindamycin Hcl) 300 Mg Cap, 1 CAP PO TID, #30 CAP Prov:ELIZABETH GRIGSBY MD 03/14/24 Amoxicillin Trihydrate (Amoxicillin) 500 Mg Cap, 1 CAP PO TID for 10 Days, #30 CAP Prov:ELIZABETH GRIGSBY MD 03/14/24 Reported Medications Metformin Hydrochloride (Metformin Hcl) 500 Mg Tab, 1000 MG PO DAILY for 30 Days, MG 11/11/24 Hydrochlorothiazide (Hydrochlorothiazide) 12.5 Mg Cap, 1 CAP PO DAILY 11/11/24 Atorvastatin Calcium (ATORVASTATIN CALCIUM) 20 Mg Tab, 1 TAB PO DAILY 11/11/24 Home Meds Home medications reviewed. Current Medications Current Medications Medications (Trade) Dose Ordered Sig/Queenie Route PRN Reason Start Time Stop Time Status Last Admin Diagnostic Test (Pha) (Accu-Chek Comfort Curve T) 1 strip ACHS 11/11/24 11:30 11/11/24 11:33 DC Insulin Human Regular (InsuLIN R) ACHS SC 11/11/24 11:30 11/11/24 11:33 DC Dextrose 50 ml UD PRN IV Blood Sugar LESS THAN 60 11/11/24 07:45 11/11/24 11:33 DC Sodium Chloride 1,000 ml @ 120 mls/hr Q8H20M IV 11/11/24 11:15 11/11/24 11:24 DC Acetaminophen/ Hydrocodone Bitart (Avis 5/325MG Tab) 1 tab Q4HP PRN PO MODERATE PAIN (4-6 PAIN SCALE) 11/11/24 11:15 11/11/24 11:24 DC Ondansetron HCl (Zofran) 4 mg Q4HP PRN IV NAUSEA / VOMITING 11/11/24 11:15 11/11/24 11:24 DC Acetaminophen (Tylenol Tablet) 650 mg Q6HP PRN PO PAIN SCALE 1-3 OR TEMP>100.4 11/11/24 11:15 11/11/24 11:24 DC Nitroglycerin (Ntrostat Sublingual) 0.4 mg Q5MINP PRN SL FOR CHEST PAIN 11/11/24 11:15 Morphine Sulfate 2 mg Q30M PRN IV FOR CHEST PAIN 11/11/24 11:15 Acetaminophen/ Hydrocodone Bitart (Avis 5/325MG Tab) 1 tab Q4HP PRN PO MODERATE PAIN (4-6 PAIN SCALE) 11/11/24 11:30 Ondansetron HCl (Zofran) 4 mg Q4HP PRN IV NAUSEA / VOMITING 11/11/24 11:30 Acetaminophen (Tylenol Tablet) 650 mg Q6HP PRN PO PAIN SCALE 1-3 OR TEMP>100.4 11/11/24 11:30 Nitroglycerin (Ntrostat Sublingual) 0.4 mg Q5MINP PRN SL FOR CHEST PAIN 11/11/24 11:30 UNV Morphine Sulfate 2 mg Q30M PRN IV FOR CHEST PAIN 11/11/24 11:30 UNV Diagnostic Test (Pha) (Accu-Chek Comfort Curve T) 1 strip ACHS 11/11/24 11:30 11/11/24 11:35 Insulin Human Regular (InsuLIN R) ACHS SC 11/11/24 11:30 11/11/24 11:36 Dextrose 50 ml UD PRN IV Blood Sugar LESS THAN 60 11/11/24 11:30 Enoxaparin Sodium (Lovenox) 40 mg DAILY SC 11/12/24 10:00 Pantoprazole Sodium (Protonix) 40 mg DAILY IV 11/11/24 11:45 11/11/24 12:02 Review of Systems Constitutional: No symptom reported Ears, Nose, & Throat: No symptom reported Eyes: No symptom reported Neurological: Headache, dizziness Pulmonary/Respiratory: No symptoms reported Cardiovascular: No symptom reported Gastrointestinal: No symptom reported Genitourinary: No symptom reported Musculoskeletal: No symptom reported Skin: No symptom reported Psychiatric: No symptom reported Endocrine: No symptom reported Hematologic/Lymphatic: No symptom reported Vital Signs Vital Signs Date Time Temp Pulse Resp B/P (MAP) Pulse Ox O2 Delivery O2 Flow Rate FiO2 11/11/24 12:18 68 11/11/24 12:00 99.4 15 141/75 (97) 96 99.4 11/11/24 07:35 Room Air* 0 21 Physical Exam General Appearance: Cooperative. Well-developed. Well-nourished. No acute distress. Pulmonary/Respiratory: Clear, bilateral breaths sounds. Cardiovascular/Chest: Regular rate and rhythm. Peripheral Pulses: 2+ Radial (R). 2+ Radial (L). 2+ Pedal (R). 2+ Pedal (L) Abdominal Exam: Normal bowel sounds. Ankle Exam: Negative ankle edema Lower extremities: Negative lower extremity edema Neuro/Mental Status: A/OX4, coherent. Thoughts/Psych: Normal thought pattern. Appropriate mood and affect. Good judgment and insight. Appearance: No acute distress. Skin Exam: Normal inspection. Normal color. Warm and dry. Labs/Diagnostic Data Labs Test 11/11/24 11:28 11/11/24 02:53 11/11/24 02:00 11/11/24 01:25 Range/Units POC Glucose 136 H 70-106 mg/dl Troponin I High Sensitivity 7 </=34 ng/L White Blood Count 7.0 4.4-10.8 10^3/uL Red Blood Count 4.76 4.0-5.20 10^6/uL Hemoglobin 13.1 12.2-16.2 g/dL Hematocrit 39.1 36.0-46.0 % Mean Corpuscular Volume 82.2 80.0-100.0 fL Mean Corpuscular Hemoglobin 27.5 L 28.0-32.0 pg Mean Corpuscular Hemoglobin Concent 33.5 32.0-36.0 g/dL Red Cell Distribution Width 14.2 11.8-14.3 % Platelet Count 267 140-450 10^3/uL Mean Platelet Volume 7.4 6.9-10.8 fL Neutrophils (%) (Auto) 58.3 37.0-80.0 % Lymphocytes (%) (Auto) 29.4 10.0-50.0 % Monocytes (%) (Auto) 8.4 0.0-12.0 % Eosinophils (%) (Auto) 3.3 0.0-7.0 % Basophils (%) (Auto) 0.6 0.0-2.0 % Neutrophils # (Auto) 4.1 1.6-8.6 10 ^3/uL Lymphocytes # (Auto) 2.0 0.4-5.4 10 ^3/uL Monocytes # (Auto) 0.6 0-1.3 10 ^3/uL Eosinophils # (Auto) 0.2 0-0.8 10 ^3/uL Basophils # (Auto) 0 0-0.2 10 ^3/uL Nucleated Red Blood Cells 0.1 % Sodium Level 139 136-145 mmol/L Potassium Level 4.0 3.5-5.1 mmol/L Chloride Level 101 98-107 mmol/L Carbon Dioxide Level 29 20-31 mmol/L Anion Gap 9 5-15 Blood Urea Nitrogen 14 9-23 mg/dL Creatinine 0.68 0.550-1.02 mg/dL Glomerular Filtration Rate Calc 99 >90 mL/min BUN/Creatinine Ratio 20.6 H 10.0-20.0 Serum Glucose 152 H 74-106 mg/dL Hemoglobin A1c 8.4 H <5.7 % A1C Calcium Level 9.8 8.7-10.4 mg/dL Urine Color Colorless Yellow Urine Clarity Clear Clear Urine pH 7.5 5.0-9.0 Urine Specific [place] 1.009 1.001-1.035 Urine Protein Negative Negative Urine Ketones Negative Negative Urine Blood Negative Negative /uL Urine Nitrite Negative Negative Urine Bilirubin Negative Negative Urine Urobilinogen Normal Negative mg/dL Urine Leukocyte Esterase Negative Negative /uL Urine RBC <1 0 - 4 /hpf Urine Microscopic WBC < 1 0-5 /HPF Urine Squamous Epithelial Cells Few <5 /hpf Urine Bacteria None seen None Seen /hpf Urine Glucose Normal Normal mg/dL Urine Opiates Screen Neg NEGATIVE Urine Fentanyl Screen Neg NEGATIVE Urine Barbiturates Screen Neg NEGATIVE Urine Phencyclidine Screen Neg NEGATIVE Urine Amphetamines Screen Neg NEGATIVE Urine Benzodiazepines Screen Neg NEGATIVE Urine Cocaine Screen Neg NEGATIVE Urine Cannabinoids Screen Neg NEGATIVE Assessment Hypertensive urgency Rule out structural heart disease Dyslipidemia Type 2 diabetes mellitus, uncontrolled (Hgb A1c 8.4%) Obesity Medical noncompliance Plan/Recommendation We will continue with the following plan/recommendations (Dr. Mercedes): * Transthoracic echocardiogram to evaluate cardiac function * Aggressive BP control as tolerated * Lipid-lowering agent * Bilateral carotid ultrasound: Negative for any significant stenosis * Close Cardiac surveillance Case discussed with . We will recommend for blood pressure control. In the setting of an unremarkable transthoracic echocardiogram, there is no further inpatient cardiac workup indicated at this time. Patient may benefit from outpatient event monitor if deemed necessary. Thank you for allowing us to care for this patient. Please call with any questions or concerns. Critical care time spent: 44 minutes This medical document was created using an electronic medical record system with voice recognition software and computerized dictation system. Although this document has been carefully reviewed, there might still be some phonetic and typographical errors. Occasional wrong-word or ``sound-alike substitutions may have occurred due to the inherent limitations of voice recognition software. These areas are purely typographical due to imperfections of the software programs and do not reflect any compromise in the patient's medical care. Please read the chart carefully and recognize, using context, where these substitutions have occurred. Plan discussed with: Patient NYHA Physical activity limitations: NA Date of Service: Nov 11, 2024 Billing Provider: RHONDA MCDONOUGH Cardiology Common Codes: 76320-URBNHIJ INP/OBS CARE (High) Cardiology Consultation Codes: [id number] CONSULT <45MIN RHONDA MCDONOUGH Nov 11, 2024 13:41
[2024-11-11 14:40] LABS: Magnesium 1.9 mg/dL (1.6-2.6)
[2024-11-11 14:41] LABS: HDL Cholesterol 50.0 mg/dL (40-59)
[2024-11-11 14:48] LABS: Cholesterol 206.0 mg/dL (< 200); Triglycerides 179.0 mg/dL (< 150)
[2024-11-11] MEDS: ACETAMINOPHEN 325 MG TAB PO PRN (15:56)
[2024-11-11 17:00] VITALS: BP 110/67; PULSE 72; RESP 17; TEMP 98.4; O2SAT 94
--- NOTE | 2024-11-11 18:14 | DVHSR ---
APPROVED REPORT EXAM: Two-dimensional and M-mode echocardiogram with Doppler and color Doppler. Blood Pressure: 144/77 mmHg INDICATION Palpitations RISK FACTORS Height: 5' 6", Weight: 160 DIMENSIONS LVDd5.2 (3.8-5.7cm)LA (2D)3.9 (1.9-4.0cm)Aortic Root3.2 (2.0-3.7cm) LVDs3.8 (2.5-4.0cm)LA (MM) (1.9-4.0cm)Aortic Cusp Exc2.1 (1.5-2.0cm) EF (%) 55.0 (55-70%)Rt. Atrium3.5 (1.9-4.0cm)Asc. Aorta4.0 cm IVSd1.2 (0.7-1.1cm)RV (D) (1.8-2.4cm) PWd1.0 (0.7-1.1cm) Mitral Valve MitralMitral Stenosis E wave0.70m/sMV Mean GR.mmHg A wave0.90m/sMV Peak GR.mmHg E/A ratio0.82D MVAcm2 Aortic Valve Aortic ValveAortic Stenosis V10.90m/Caitlin Mean GR.6mmHg V21.70m/Caitlin Peak GR.12mmHg LVOT Diameter2.4 (1.8-2.4cm)Doppler AVA2.39cm2 Pulmonic Valve V20.80m/s Other Information Quality : Technically LimitedRhythm : Conclusion LVEF normal 50-55%, RV normal No significant valve disease noted
[2024-11-11 20:00] VITALS: PULSE 67
[2024-11-11 21:00] VITALS: BP 123/80; PULSE 70; RESP 18; TEMP 97.6; O2SAT 95
[2024-11-11] MEDS: ATORVASTATIN 20 MG TAB PO SCH (21:09)
[2024-11-12] VITALS (7 sets, daily range): BP systolic 112–143; BP diastolic 71–88; PULSE 55–77; RESP 16–20; TEMP 97–98.4; O2SAT 93–96
--- NOTE | 2024-11-12 06:38 | ECG ---
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
[2024-11-12 07:15] LABS: Hematocrit 40.9 % (36.0-46.0); Hemoglobin 13.8 g/dL (12.2-16.2); Mean Corpuscular Hemoglobin 28.0 pg (28.0-32.0); Mean Corpuscular Volume 83.1 fL (80.0-100.0); Nucleated Red Blood Cells % 0.1 %
[2024-11-12 07:25] LABS: Alanine Aminotransferase 21 U/L (7-40); Albumin 4.2 g/dL (3.2-4.8); Alkaline Phosphatase 82 U/L (46-116); Anion Gap 9 (5-15); BUN/Creatinine Ratio 20.0 (10.0-20.0); Bilirubin, Total 0.6 mg/dL (0.2-1.0); Blood Urea Nitrogen 13 mg/dL (9-23); Calcium 10.4 mg/dL (8.7-10.4); Carbon Dioxide 26 mmol/L (20-31); Chloride 105 mmol/L (98-107); Potassium 4.0 mmol/L (3.5-5.1); Sodium 140 mmol/L (136-145); Total Protein 6.7 g/dL (5.7-8.2)
[2024-11-12 07:29] LABS: Glucose 171 mg/dL (74-106)
[2024-11-12 10:56] LABS: Hepatitis B Surface Antigen Negative (Negative); Hepatitis C Antibody Negative (Negative)
[2024-11-12] MEDS: ENOXAPARIN SOD 40 MG/0.4 ML SYRINGE SC SCH (12:17)
--- NOTE | 2024-11-12 17:38 | DVHPN2 ---
Subjective 63-year-old female with a known history of hypertension, noncompliant with the medication is here for hypertensive urgency. Patient denies any headache blurry vision. 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 Medications Current Medications Medications Dose Ordered Sig/Queenie Route Start Time Stop Time Status Last Admin Dose Admin Nitroglycerin 0.4 mg Q5MINP PRN SL 11/11/24 11:15 Morphine Sulfate 2 mg Q30M PRN IV 11/11/24 11:15 Acetaminophen/ Hydrocodone Bitart 1 tab Q4HP PRN PO 11/11/24 11:30 Ondansetron HCl 4 mg Q4HP PRN IV 11/11/24 11:30 Acetaminophen 650 mg Q6HP PRN PO 11/11/24 11:30 11/11/24 15:56 650 MG Nitroglycerin 0.4 mg Q5MINP PRN SL 11/11/24 11:30 UNV Morphine Sulfate 2 mg Q30M PRN IV 11/11/24 11:30 UNV Diagnostic Test (Pha) 1 strip ACHS 11/11/24 11:30 11/12/24 11:30 1 STRIP Insulin Human Regular ACHS SC 11/11/24 11:30 11/12/24 12:19 3 UNITS Dextrose 50 ml UD PRN IV 11/11/24 11:30 Enoxaparin Sodium 40 mg DAILY SC 11/12/24 10:00 11/12/24 12:17 40 MG Pantoprazole Sodium 40 mg DAILY IV 11/11/24 11:45 11/12/24 12:17 40 MG Atorvastatin Calcium 40 mg HS PO 11/11/24 22:00 11/11/24 21:09 40 MG Hydrochlorothiazide 25 mg DAILY PO 11/13/24 10:00 Laboratory Results Laboratory Tests 11/12/24 06:04 Chemistry Test 11/12/24 06:04 Albumin 4.2 g/dL (3.2-4.8) Calcium Level 10.4 mg/dL (8.7-10.4) Total Protein 6.7 g/dL (5.7-8.2) LFT Test 11/12/24 06:04 Alanine Aminotransferase (ALT) 21 U/L (7-40) Alkaline Phosphatase 82 U/L (46-116) Aspartate Amino Transferase (AST) 22 U/L (13-40) Total Bilirubin 0.6 mg/dL (0.2-1.0) Urinalysis Test 11/11/24 01:25 Urine Color Colorless (Yellow) Urine Clarity Clear (Clear) Urine pH 7.5 (5.0-9.0) Urine Specific [place] 1.009 (1.001-1.035) Urine Protein Negative (Negative) Urine Ketones Negative (Negative) Urine Blood Negative /uL (Negative) Urine Nitrite Negative (Negative) Urine Bilirubin Negative (Negative) Urine Urobilinogen Normal mg/dL (Negative) Urine Leukocyte Esterase Negative /uL (Negative) Urine RBC <1 /hpf (0 - 4) Urine Microscopic WBC < 1 /HPF (0-5) Urine Squamous Epithelial Cells Few /hpf (<5) Urine Bacteria None seen /hpf (None Seen) Urine Glucose Normal mg/dL (Normal) Assessment/Plan Assessment/Plan 63-year-old female with a known history of diabetes mellitus type 2, hypertension, medication noncompliance presented to the hospital with a headache dizziness found to have 1. Hypertensive urgency 2. Headache and dizziness resolved 3. Noncompliance 4. Diabetes mellitus type 2 5. Hypertension -start hydrochlorothiazide, monitor BP, 2D echo cardiology consultation, discharge plan Plan discussed with: Patient My Orders Orders - MARIANNE JACINTO MD Procedure Category Date Status Time Hydrochlorothiazide PHA 11/13/24 In Process Tablet (Hydrochlorot 10:00 Date of Service: Nov 12, 2024 Billing Provider: MARIANNE JACINTO MD Common Visit Codes: [id number] INP/OBS CARE(MOD) MARIANNE JACINTO MD Nov 12, 2024 17:38
[2024-11-12] MEDS: hydroCHLOROthiazide 25 MG TAB PO ONE (18:31)
[2024-11-13 05:00] VITALS: BP 119/82; PULSE 73; RESP 20; TEMP 97.5; O2SAT 94
[2024-11-13 08:00] VITALS: PULSE 85
[2024-11-13 09:00] VITALS: BP 131/65; PULSE 79; RESP 19; TEMP 97.9; O2SAT 98
[2024-11-13] MEDS: hydroCHLOROthiazide 25 MG TAB PO SCH (09:30)
[2024-11-13 13:10] VITALS: BP 136/78; PULSE 82; RESP 20; TEMP 97.6; O2SAT 93
[2024-11-13] MEDS ORDERED: GLIP5TAB21 PO (13:45)
[2024-11-13] MEDS ORDERED: HYDR25TA5 PO (13:45)
--- NOTE | 2024-11-13 13:47 | DVHDS2 ---
Discharge Summary Date of Admission Nov 11, 2024 at 11:19 Date of Discharge: Nov 13, 2024 Labs/Diagnostic Data: Laboratory Results Test 11/13/24 11:41 11/12/24 06:04 11/11/24 02:53 11/11/24 02:00 POC Glucose 227 mg/dl (70-106) White Blood Count 5.8 10^3/uL (4.4-10.8) Red Blood Count 4.92 10^6/uL (4.0-5.20) Hemoglobin 13.8 g/dL (12.2-16.2) Hematocrit 40.9 % (36.0-46.0) Mean Corpuscular Volume 83.1 fL (80.0-100.0) Mean Corpuscular Hemoglobin 28.0 pg (28.0-32.0) Mean Corpuscular Hemoglobin Concent 33.7 g/dL (32.0-36.0) Red Cell Distribution Width 14.2 % (11.8-14.3) Platelet Count 257 10^3/uL (140-450) Mean Platelet Volume 7.8 fL (6.9-10.8) Neutrophils (%) (Auto) 56.1 % (37.0-80.0) Lymphocytes (%) (Auto) 28.5 % (10.0-50.0) Monocytes (%) (Auto) 11.4 % (0.0-12.0) Eosinophils (%) (Auto) 3.6 % (0.0-7.0) Basophils (%) (Auto) 0.4 % (0.0-2.0) Neutrophils # (Auto) 3.3 10 ^3/uL (1.6-8.6) Lymphocytes # (Auto) 1.7 10 ^3/uL (0.4-5.4) Monocytes # (Auto) 0.7 10 ^3/uL (0-1.3) Eosinophils # (Auto) 0.2 10 ^3/uL (0-0.8) Basophils # (Auto) 0 10 ^3/uL (0-0.2) Nucleated Red Blood Cells 0.1 % Sodium Level 140 mmol/L (136-145) Potassium Level 4.0 mmol/L (3.5-5.1) Chloride Level 105 mmol/L (98-107) Carbon Dioxide Level 26 mmol/L (20-31) Anion Gap 9 (5-15) Blood Urea Nitrogen 13 mg/dL (9-23) Creatinine 0.65 mg/dL (0.550-1.02) Glomerular Filtration Rate Calc 100 mL/min (>90) BUN/Creatinine Ratio 20.0 (10.0-20.0) Serum Glucose 171 mg/dL (74-106) Calcium Level 10.4 mg/dL (8.7-10.4) Total Bilirubin 0.6 mg/dL (0.2-1.0) Aspartate Amino Transferase (AST) 22 U/L (13-40) Alanine Aminotransferase (ALT) 21 U/L (7-40) Alkaline Phosphatase 82 U/L (46-116) Total Protein 6.7 g/dL (5.7-8.2) Albumin 4.2 g/dL (3.2-4.8) Troponin I High Sensitivity 7 ng/L (</=34) Hemoglobin A1c 8.4 % A1C (<5.7) Magnesium Level 1.9 mg/dL (1.6-2.6) Triglycerides Level 179 mg/dL (< 150) Cholesterol Level 206 mg/dL (< 200) LDL Cholesterol 137 mg/dL (< 100) HDL Cholesterol 50 mg/dL (40-59) Thyroid Stimulating Hormone (TSH) 3.95 uIU/mL (0.55-4.78) Hepatitis B Surface Antigen Negative (Negative) Hepatitis C Antibody Negative (Negative) Test 11/11/24 01:25 Urine Color Colorless (Yellow) Urine Clarity Clear (Clear) Urine pH 7.5 (5.0-9.0) Urine Specific [place] 1.009 (1.001-1.035) Urine Protein Negative (Negative) Urine Ketones Negative (Negative) Urine Blood Negative /uL (Negative) Urine Nitrite Negative (Negative) Urine Bilirubin Negative (Negative) Urine Urobilinogen Normal mg/dL (Negative) Urine Leukocyte Esterase Negative /uL (Negative) Urine RBC <1 /hpf (0 - 4) Urine Microscopic WBC < 1 /HPF (0-5) Urine Squamous Epithelial Cells Few /hpf (<5) Urine Bacteria None seen /hpf (None Seen) Urine Glucose Normal mg/dL (Normal) Urine Opiates Screen Neg (NEGATIVE) Urine Fentanyl Screen Neg (NEGATIVE) Urine Barbiturates Screen Neg (NEGATIVE) Urine Phencyclidine Screen Neg (NEGATIVE) Urine Amphetamines Screen Neg (NEGATIVE) Urine Benzodiazepines Screen Neg (NEGATIVE) Urine Cocaine Screen Neg (NEGATIVE) Urine Cannabinoids Screen Neg (NEGATIVE) Other Laboratory Tests 11/12/24 06:04 Brief Hx & Hospital Course: 63-year-old female with a known history of diabetes mellitus type 2, hypertension, medication noncompliance presented to the hospital with a headache dizziness found to have hypertensive urgency. Patient was started on a hypertensive medications. Patient does have known history of noncompliance as she was not taking her home medications. Patient's also has a known history of diabetes mellitus type 2 currently on metformin her A1c is more than eight. Patient will be given glipizide as well as hydrochlorothiazide. Patient is being discharged under stable condition with close follow up as an outpatient with the PCP. Compliance teaching has been given. Condition at Discharge: Stable Final Diagnosis/Problems List 63-year-old female with a known history of diabetes mellitus type 2, hypertension, medication noncompliance presented to the hospital with a headache dizziness found to have 1. Hypertensive urgency, resolved 2. Headache and dizziness resolved 3. Noncompliance 4. Diabetes mellitus type 2 5. Hypertension Discharge Disposition: Home SNF Discharge Will this Physician continue t: No Discharge Instruct/Medications Diet: Cardiac 2g Na,low cholest Diet comment: 1800 ADA diet. Activity: No Restrictions, As Tolerated Follow Up/Referral: Follow up with the PCP in 1-2 weeks Medications: Hydrochlorothiazide and glipizide as prescribed Scheduled Atorvastatin Calcium (Atorvastatin Calcium), 1 TAB PO DAILY, (Reported) Glipizide (Glipizide), 1 TAB PO BID Hctz (Hydrochlorothiazide), 25 MG PO DAILY Metformin Hydrochloride (Metformin Hcl), 1,000 MG PO DAILY, (Reported) Scheduled PRN Cyclobenzaprine Hcl (Cyclobenzaprine Hcl), 1 TAB PO QHSP PRN Discontinued Medications Amoxicillin Trihydrate (Amoxicillin), 1 CAP PO TID Clindamycin Hcl (Clindamycin Hcl), 1 CAP PO TID Hydrochlorothiazide (Hydrochlorothiazide), 1 CAP PO DAILY, (Reported) Ibuprofen (Ibuprofen), 1 TAB PO TID PRN Discharge Statement: "Patient was advised to return to the ER or call 911 if any headaches, dizziness, shortness of breath, chest pain, abdominal pain, bleeding, fevers, or worsening of medical condition. Patient was counseled about treatment plan, medications, possible side effects, patientverbalized understanding. All questions were answered to the best of my ability. This discharge took greater then 30 minutes in planning, reviewing documentation, counseling the patient, and discussing with other team members." ASSESSMENT ASSESSMENT Assessment 63-year-old female with a known history of diabetes mellitus type 2, hypertension, medication noncompliance presented to the hospital with a headache dizziness found to have 1. Hypertensive urgency 2. Headache and dizziness resolved 3. Noncompliance 4. Diabetes mellitus type 2 5. Hypertension Date of Service: Nov 13, 2024 Billing Provider: MARIANNE JACINTO MD Common Visit Codes: [id number] DISCH DAY >30min MARIANNE JACINTO MD Nov 13, 2024 13:46
[2024-11-13 14:20] VITALS: BP 131/65; TEMP 36.4
== END 2024-11-13 15:56 | disposition home or self-care (01) | DRG 48 ==
LOC: ER 01:24 → EDBD 01:24 → OVERFLOW 11:19 → TELE-CENTR 16:20
DX: G90.89 Other disorders of autonomic nervous system (principal); E11.9 Type 2 diabetes mellitus without complications; I16.0 Hypertensive urgency; I10 Essential (primary) hypertension; E66.9 Obesity, unspecified; E78.5 Hyperlipidemia, unspecified; H93.13 Tinnitus, bilateral; Z68.25 Body mass index [BMI] 25.0-25.9, adult; Z96.651 Presence of right artificial knee joint; Z91.148 Patient's other noncompliance with medication regimen for other reason; Z82.49 Family history of ischemic heart disease and other diseases of the circulatory system; Z83.3 Family history of diabetes mellitus; Z83.438 Family history of other disorder of lipoprotein metabolism and other lipidemia
CPT/HCPCS: 36415; 70450; 71045; 80048; 80053; 80061; 80307; 81001; 82962; 83036; 83735; 84443; 84484; 85025; 86803; 87340; 93005; 93306; 93886; 93970; G0378; J1815; J2470